=== PATIENT | female | born 1980 | race Hispanic/Latino ===

== ENCOUNTER → 2016-05-06 | Outpatient (CLI) | payer SELFPAY ==
[~2016-05-06] MED LIST: BIRTH CONTROL; LEVAQUIN500 MG PO; Motrin PO; NORCO 5/3251 TABLET PO; PREFERA-OB P1 TABLET PO; ROBITUSSIN DM118 ML PO; TAMIFLU75 MG PO; TESSALON PERLE100 MG PO; VENTOLIN HFA18 GM IH; ZOFRAN ODT8 MG PO
== END | disposition home or self-care (01) ==
LOC: RAD 14:00
DX: R10.30 Lower abdominal pain, unspecified (principal)
CPT/HCPCS: 76856

== ENCOUNTER → 2016-09-12 | Outpatient (CLI) | payer SELFPAY | END | disposition home or self-care (01) | LOC: RAD 14:00 | DX: O26.891 Other specified pregnancy related conditions, first trimester (principal); Z3A.01 Less than 8 weeks gestation of pregnancy; O20.8 Other hemorrhage in early pregnancy; R93.8 Abnormal findings on diagnostic imaging of other specified body structures | CPT/HCPCS: 76801 ==

== ENCOUNTER → 2016-12-16 | Outpatient (CLI) | payer SELFPAY | END | disposition home or self-care (01) | LOC: RAD 13:32 | DX: Z3A.20 20 weeks gestation of pregnancy (principal) | CPT/HCPCS: 76811; 76815 ==

== ENCOUNTER → 2017-01-19 | Outpatient (CLI) | payer SELFPAY | END | disposition home or self-care (01) | LOC: RAD 09:37 | DX: Z34.90 Encounter for supervision of normal pregnancy, unspecified, unspecified trimester (principal); Z3A.25 25 weeks gestation of pregnancy | CPT/HCPCS: 76816 ==

== ENCOUNTER 2017-03-24 17:34 | Inpatient (IN) | payer OTHER ==
[2017-03-24] VITALS (11 sets, daily range): BP systolic 145–183; BP diastolic 91–113
[~2017-03-24] VITALS: Ht 152.4 cm; Wt 86.8 kg
[~2017-03-24 17:34] MED LIST changes: +ASPIR 8181 M1 PO; +EXPECTA PRENAT1 EACH PO
[2017-03-24 18:54] LABS: EOSINOPHIL (%) 3.7 % (0-5); EOSINOPHIL COUNT 0.3 K/uL (0-0.3); HEMATOCRIT 36.9 % (36.0-46.0); IMMATURE GRANULOCYTE (%) 0.9 % (0.0-0.7); IMMATURE GRANULOCYTE COUNT 0.1 K/uL; INSTRUMENT ABS NEUTROPHIL CT 4.9 K/uL; LYMPHOCYTE COUNT 1.7 K/uL (1.0-2.8); MCH 29.9 PG (29.0-34.0); MCHC 32.8 G/DL (30.0-36.0); MCV 91.1 FL (83-99); MEAN PLAT.VOLUME 10.7 uM^3 (9.5-12.4); MONOCYTE (%) 9.8 % (3-12); MONOCYTE COUNT 0.8 K/uL (0-0.8); NEUTROPHIL (%) 63.4 % (45-76); NEUTROPHIL COUNT 4.9 K/uL (1.8-6.4); NRBC (%) 0.8 /100 WBC (0-0); PLATELET COUNT 166 K/uL (156-360); RBC DIS.WIDTH-CV 16.3 % (11.8-14.6); RBC DIS.WIDTH-SD 53.3 % (39-53); RED BLOOD COUNT 4.05 M/uL (3.80-5.20); WHITE BLOOD COUNT 7.8 K/uL (4.1-10.2)
[2017-03-24 19:08] LABS: FIBRINOGEN 420 mg/dL (150-450)
[2017-03-24 19:09] LABS: INTER. NORMALIZED RATIO 0.9; PROTHROMBIN TIME 10.5 SEC (10.2-12.9)
[2017-03-24 19:11] LABS: ALKALINE PHOSPHATASE 187 IU/L (3-129); ANION GAP 9 MEQ/L (2-14); CHLORIDE 106 MEQ/L (99-109); GFR ESTIMATE (CALCULATED) > 59 mL/min/; GLUCOSE 94 mg/dL (70-99); LACTATE DEHYDROGENASE 263 IU/L (20-246); POTASSIUM 4.2 MEQ/L (3.7-5.4); PTT 27.1 SEC (25-37); SAMPLE HEMOLYSIS CHECK 0; SAMPLE ICTERIC CHECK 0; SAMPLE LIPEMIA CHECK 0; SODIUM 137 MEQ/L (136-147); TOTAL BILIRUBIN 0.3 MG/DL (0.0-1.0); UREA NITROGEN (BUN) 13 mg/dL (9-23)
[2017-03-24 19:17] LABS: UR CREATININE CONCENTRATION 45.2 MG/DL
[2017-03-24 21:44] LABS: AMPHETAMINE NEGATIVE (500 ng/mL); BARBITURATES NEGATIVE (200 ng/mL); BENZODIAZEPINES NEGATIVE (150 ng/mL); COCAINE NEGATIVE (150 ng/mL); INTERNAL CONTROLS VALID? YES; METHADONE NEGATIVE (200 ng/mL); METHAMPHETAMINE NEGATIVE (500 ng/mL); OPIATES (MORPHINE) NEGATIVE (100 ng/mL); OXYCODONE NEGATIVE (100 ng/mL); PHENCYCLIDINE NEGATIVE (25 ng/mL); PROPOXYPHENE NEGATIVE (300 ng/mL); THC CANNABINOIDS NEGATIVE (50 ng/mL); TRICYCLIC ANTIDEPRESSANTS NEGATIVE (300 ng/mL)
[2017-03-24 21:50] LABS: CANDIDA DNA PROBE NEGATIVE
[2017-03-24 21:51] LABS: GARDNERELLA DNA PROBE NEGATIVE; INTERNAL CONTROL VALID? YES
[2017-03-25] VITALS (43 sets, daily range): BP systolic 98–175; BP diastolic 57–99
[2017-03-25 18:16] LABS: MCH 30.1 PG (29.0-34.0); MCHC 32.7 G/DL (30.0-36.0); MEAN PLAT.VOLUME 11.2 uM^3 (9.5-12.4); NRBC (%) 0.3 /100 WBC (0-0); PLATELET COUNT 175 K/uL (156-360); RBC DIS.WIDTH-CV 16.6 % (11.8-14.6); RBC DIS.WIDTH-SD 55.1 % (39-53); RED BLOOD COUNT 3.26 M/uL (3.80-5.20); WHITE BLOOD COUNT 15.5 K/uL (4.1-10.2)
[2017-03-26] VITALS (14 sets, daily range): BP systolic 122–157; BP diastolic 71–94
[2017-03-26 06:03] LABS: EOSINOPHIL (%) 0.2 % (0-5); HEMATOCRIT 26.6 % (36.0-46.0); IMMATURE GRANULOCYTE (%) 1.2 % (0.0-0.7); IMMATURE GRANULOCYTE COUNT 0.2 K/uL; INSTRUMENT ABS NEUTROPHIL CT 11.4 K/uL; LYMPHOCYTE COUNT 3.7 K/uL (1.0-2.8); MCH 30.7 PG (29.0-34.0); MCHC 33.5 G/DL (30.0-36.0); MCV 91.7 FL (83-99); MEAN PLAT.VOLUME 10.5 uM^3 (9.5-12.4); MONOCYTE (%) 7.2 % (3-12); MONOCYTE COUNT 1.2 K/uL (0-0.8); NEUTROPHIL COUNT 11.4 K/uL (1.8-6.4); NRBC (%) 0.5 /100 WBC (0-0); PLATELET COUNT 170 K/uL (156-360); RBC DIS.WIDTH-CV 16.9 % (11.8-14.6); RBC DIS.WIDTH-SD 54.9 % (39-53); WHITE BLOOD COUNT 16.5 K/uL (4.1-10.2)
[2017-03-27 02:54] VITALS: BP 121/67
[2017-03-27 08:13] VITALS: BP 143/78
[2017-03-27 12:41] VITALS: BP 130/70
[2017-03-27 16:34] VITALS: BP 124/74
[2017-03-27 16:36] VITALS: BP 124/74
[2017-03-27 18:30] VITALS: BP 122/83
== END 2017-03-27 21:00 | disposition home or self-care (01) | DRG 774 ==
LOC: LDRP-OP 17:34 → 2WEST 17:35 → LDRP-OP 06-01 20:21
PROVIDERS: Advanced Practice Midwife; Obstetrics & Gynecology
PROC: 3E0R3BZ Introduction of Anesthetic Agent into Spinal Canal, Percutaneous Approach (ICD-10-PCS; principal; 2017-03-25)
PROC: 10907ZC Drainage of Amniotic Fluid, Therapeutic from Products of Conception, Via Natural or Artificial Opening (ICD-10-PCS; principal; 2017-03-25)
PROC: 00HU33Z Insertion of Infusion Device into Spinal Canal, Percutaneous Approach (ICD-10-PCS; principal; 2017-03-25)
PROC: 10E0XZZ Delivery of Products of Conception, External Approach (ICD-10-PCS; principal; 2017-03-25)
PROC: 3E033VJ Introduction of Other Hormone into Peripheral Vein, Percutaneous Approach (ICD-10-PCS; principal; 2017-03-25)
DX: O14.14 Severe pre-eclampsia complicating childbirth (principal); O60.14X0 Preterm labor third trimester with preterm delivery third trimester, not applicable or unspecified; O99.02 Anemia complicating childbirth; D62 Acute posthemorrhagic anemia; O99.214 Obesity complicating childbirth; E66.9 Obesity, unspecified; Z68.30 Body mass index [BMI] 30.0-30.9, adult; O72.1 Other immediate postpartum hemorrhage; Z82.49 Family history of ischemic heart disease and other diseases of the circulatory system; Z3A.34 34 weeks gestation of pregnancy; Z37.0 Single live birth
CPT/HCPCS: 76805; 80053; 82570; 83615; 84156; 84550; 85025; 85027; 85384; 85610; 85730; 86850; 86900; 86901; 87077; 87081; 87086; 87186; 87480; 87510; 87660; 88307; C1755; G0378; J0595; J0702; J2540; J3010; J3475; J7120